=== PATIENT | female | born 1960 | race Caucasian/White ===

== ENCOUNTER 2018-06-03 02:04 | Observation (INO) | payer OTHER ==
[2018-06-03] MEDS ORDERED: NACL 0.9% 3 ML SYG IV (05:00)
[2018-06-03] MEDS ORDERED: ALBUTEROL/IPRATROPIUM (NEB) 3 ML AMP HHN (05:00)
[2018-06-03] MEDS ORDERED: NITROGLYCERIN (SL) 0.4 MG TAB SL (05:00)
[2018-06-03] MEDS ORDERED: ACETAMINOPHEN 325 MG TAB PO ×2 (05:00)
[2018-06-03] MEDS ORDERED: ONDANSETRON 4 MG INJ IV (05:00)
[2018-06-03] MEDS ORDERED: HYDROCODONE/APAP (5/325) TAB PO (05:00)
[2018-06-03] MEDS: PANTOPRAZOLE (EC) 40 MG TAB PO (06:04)
[2018-06-03 06:10] LABS: ADD MAN DIFF? NO
[2018-06-03 06:20] LABS: BASOPHILS % 0.6 % (0.0-2.0); EOSINOPHILS # 0.1 10^3/ul (0.0-0.5); EOSINOPHILS % 1.7 % (0.0-7.0); HEMATOCRIT 41.6 % (37.0-47.0); HEMOGLOBIN 13.3 g/dl (12.0-16.0); LYMPHOCYTES # 2.5 10^3/ul (0.8-2.9); LYMPHOCYTES % 35.7 % (15.0-51.0); MEAN CORPUSCULAR HEMOGLOBIN 26.2 pg (29.0-33.0); MEAN CORPUSCULAR VOLUME 81.9 fl (82.0-101.0); MEAN PLATELET VOLUME 10.6 fl (7.4-10.4); MONOCYTE # 0.5 10^3/ul (0.3-0.9); MONOCYTES % 7.3 % (0.0-11.0); NEUTROPHIL # 3.8 10^3/ul (1.6-7.5); NEUTROPHILS % 54.6 % (39.0-77.0); PLATELET COUNT 239 10^3/UL (140-415); RED BLOOD COUNT 5.08 10^6/ul (4.20-5.40); RED CELL DISTRIBUTION WIDTH 13.1 % (11.5-14.5)
[2018-06-03 07:28] LABS: CREATINE KINASE 66 IU/L (23-200)
[2018-06-03 07:36] LABS: ALANINE AMINOTRANSFERASE 27 IU/L (13-69); ALBUMIN 4.3 g/dl (3.3-4.9); ALBUMIN/GLOBULIN RATIO 1.53; ALKALINE PHOSPHATASE 86 IU/L (42-121); ANION GAP 11 (5-13); ASPARTATE AMINO TRANSFERASE 25 IU/L (15-46); BILIRUBIN,INDIRECT 0.6 mg/dl (0-1.1); BILIRUBIN,TOTAL 0.6 mg/dl (0.2-1.3); BLOOD UREA NITROGEN 15 mg/dl (7-20); CALCIUM 9.7 mg/dl (8.4-10.2); CARBON DIOXIDE 27 mmol/L (21-31); CHLORIDE 106 mmol/L (97-110); CHOL/HDL RATIO 3.4 RATIO; CHOLESTEROL 126 mg/dl (100-200); CREATININE 0.67 mg/dl (0.44-1.00); Estimated GFR > 60 mL/min (>60); GLUCOSE 96 mg/dl (70-220); HDL CHOLESTEROL 37 mg/dl (35-98); LDL CHOLESTEROL,CALCULATED 60 mg/dl; MAGNESIUM 2.1 mg/dl (1.7-2.5); SODIUM 144 mmol/L (135-144); TOTAL PROTEIN 7.1 g/dl (6.1-8.1); TRIGLYCERIDES 144 mg/dl (0-149)
[2018-06-03 07:41] LABS: CK INDEX 0.3; CK-MB < 0.22 ng/ml (0.0-2.4); TROPONIN-I < 0.012 ng/ml (0.000-0.120)
[2018-06-03 07:53] LABS: HEMOGLOBIN A1C 5.6 % (0-5.9)
[2018-06-03 08:02] LABS: THYROID STIMULATING HORMONE 0.474 MIU/L (0.465-4.680)
[2018-06-03] MEDS: ASPIRIN 81 MG TAB PO (08:12)
[2018-06-03] MEDS: FISH OIL 1,000 MG CAP PO (08:12)
[2018-06-03] MEDS: METOPROLOL 25 MG TAB PO ×2 (08:13→21:44)
[2018-06-03] MEDS: ENOXAPARIN 40 MG/0.4 ML SYG SC (08:29)
[2018-06-03 11:07] LABS: CREATINE KINASE 64 IU/L (23-200)
[2018-06-03 11:22] LABS: CK INDEX 0.3; CK-MB < 0.22 ng/ml (0.0-2.4); TROPONIN-I < 0.012 ng/ml (0.000-0.120)
[2018-06-03] MEDS: ENALAPRIL 5 MG TAB PO (12:23)
[2018-06-03] MEDS ORDERED: ATORVASTATIN 40 MG TAB PO (21:00)
[2018-06-03] MEDS: ATORVASTATIN 40 MG TAB PO (21:39)
[2018-06-04] MEDS: PANTOPRAZOLE (EC) 40 MG TAB PO (05:40)
[2018-06-04 06:08] LABS: ADD MAN DIFF? NO
[2018-06-04 06:18] LABS: BASOPHILS % 0.6 % (0.0-2.0); EOSINOPHILS # 0.2 10^3/ul (0.0-0.5); EOSINOPHILS % 2.2 % (0.0-7.0); HEMATOCRIT 42.4 % (37.0-47.0); HEMOGLOBIN 13.4 g/dl (12.0-16.0); LYMPHOCYTES # 2.2 10^3/ul (0.8-2.9); LYMPHOCYTES % 31.6 % (15.0-51.0); MEAN CORPUSCULAR HEMOGLOBIN 26.2 pg (29.0-33.0); MEAN CORPUSCULAR HGB CONC 31.6 g/dl (32.0-37.0); MEAN CORPUSCULAR VOLUME 82.8 fl (82.0-101.0); MEAN PLATELET VOLUME 10.7 fl (7.4-10.4); MONOCYTE # 0.6 10^3/ul (0.3-0.9); MONOCYTES % 8.4 % (0.0-11.0); NEUTROPHILS % 56.9 % (39.0-77.0); PLATELET COUNT 255 10^3/UL (140-415); RED BLOOD COUNT 5.12 10^6/ul (4.20-5.40)
[2018-06-04 06:18] LABS: WHITE BLOOD COUNT 6.9 10^3/ul (4.8-10.8)
[2018-06-04 06:45] LABS: ANION GAP 13 (5-13); BLOOD UREA NITROGEN 27 mg/dl (7-20); CALCIUM 9.7 mg/dl (8.4-10.2); CARBON DIOXIDE 28 mmol/L (21-31); CHLORIDE 103 mmol/L (97-110); CREATININE 0.93 mg/dl (0.44-1.00); Estimated GFR > 60 mL/min (>60); GLUCOSE 100 mg/dl (70-220); MAGNESIUM 2.1 mg/dl (1.7-2.5); PHOSPHORUS 5.2 mg/dl (2.5-4.9); POTASSIUM 3.8 mmol/L (3.5-5.1); SODIUM 144 mmol/L (135-144)
[2018-06-04] MEDS: ASPIRIN 81 MG TAB PO (08:17)
[2018-06-04] MEDS: FISH OIL 1,000 MG CAP PO (08:17)
[2018-06-04] MEDS: METOPROLOL 25 MG TAB PO ×2 (08:19→21:00)
[2018-06-04] MEDS: ENALAPRIL 5 MG TAB PO (08:19)
[2018-06-04] MEDS: ENOXAPARIN 40 MG/0.4 ML SYG SC (08:28)
[2018-06-04] MEDS: ATORVASTATIN 40 MG TAB PO (22:51)
[2018-06-05] MEDS: PANTOPRAZOLE (EC) 40 MG TAB PO (05:34)
[2018-06-05] MEDS: FISH OIL 1,000 MG CAP PO (08:45)
[2018-06-05] MEDS: ENALAPRIL 5 MG TAB PO (08:45)
[2018-06-05] MEDS: METOPROLOL 25 MG TAB PO (08:45)
[2018-06-05] MEDS: ASPIRIN 81 MG TAB PO (08:45)
[2018-06-05] MEDS: ENOXAPARIN 40 MG/0.4 ML SYG SC (09:28)
[2018-06-05] MEDS: REGADENOSON 0.4 MG/5 ML SYG (14:25)
== END 2018-06-05 19:30 | disposition home or self-care (01) ==
LOC: 6WM 02:04
DX: R07.89 Other chest pain (principal); Z86.73 Personal history of transient ischemic attack (TIA), and cerebral infarction without residual deficits; I11.0 Hypertensive heart disease with heart failure; I50.9 Heart failure, unspecified
CPT/HCPCS: 78452; 80048; 80053; 80061; 82550; 82553; 83036; 83735; 84100; 84443; 84484; 85025; 93005; 93017; 93306; 99217; G0378

== ENCOUNTER → 2018-08-05 | Outpatient (CLI) | payer OTHER ==
[~2018-08-05] MED LIST: METOPROLOL 5 MG INJ
[2018-08-05] MEDS: METOPROLOL 100 MG TAB ×2 (10:09→11:04)
[2018-08-05] MEDS: METOPROLOL (XL) 100 MG TAB PO (10:10)
[2018-08-05] MEDS: METOPROLOL (XL) 50 MG TAB PO (11:00)
[2018-08-05] MEDS: NITROGLYCERIN AEROSOL (4.9 GM) SL (12:02)
[2018-08-05] MEDS: NITROGLYCERIN AEROSOL (4.9 GM) (12:02)
[2018-08-05] MEDS: METOPROLOL 5 MG INJ IV (12:28)
[2018-08-05] MEDS: METOPROLOL 5 MG INJ (12:55)
[2018-08-05] MEDS: SOD CHLORIDE 0.9% 100 ML (13:00)
[2018-08-05] MEDS: IOHEXOL 100 ML (13:00)
== END | disposition home or self-care (01) ==
LOC: C/S 08:49
DX: R07.9 Chest pain, unspecified (principal)
CPT/HCPCS: 75571; 75571-59; 75574

== ENCOUNTER 2018-08-28 06:57 | Day surgery (SDC) | payer OTHER ==
[2018-08-28] MEDS ORDERED: PROPOFOL 20 ML (07:56)
[2018-08-28] MEDS ORDERED: PROPOFOL 200 MG INJ (07:56)
[2018-08-28 08:18] LABS: ADD MAN DIFF? NO
[2018-08-28 08:21] LABS: BASOPHIL # 0.1 10^3/ul (0.0-0.1); BASOPHILS % 0.8 % (0.0-2.0); EOSINOPHILS # 0.2 10^3/ul (0.0-0.5); EOSINOPHILS % 2.3 % (0.0-7.0); HEMATOCRIT 41.2 % (37.0-47.0); HEMOGLOBIN 13.4 g/dl (12.0-16.0); LYMPHOCYTES # 2.2 10^3/ul (0.8-2.9); LYMPHOCYTES % 34.4 % (15.0-51.0); MEAN CORPUSCULAR HEMOGLOBIN 26.3 pg (29.0-33.0); MEAN CORPUSCULAR HGB CONC 32.5 g/dl (32.0-37.0); MEAN CORPUSCULAR VOLUME 80.9 fl (82.0-101.0); MEAN PLATELET VOLUME 10.5 fl (7.4-10.4); MONOCYTE # 0.6 10^3/ul (0.3-0.9); MONOCYTES % 9.5 % (0.0-11.0); NEUTROPHIL # 3.5 10^3/ul (1.6-7.5); NEUTROPHILS % 52.8 % (39.0-77.0); PLATELET COUNT 231 10^3/UL (140-415); RED BLOOD COUNT 5.09 10^6/ul (4.20-5.40); RED CELL DISTRIBUTION WIDTH 13.2 % (11.5-14.5)
[2018-08-28 08:21] LABS: WHITE BLOOD COUNT 6.5 10^3/ul (4.8-10.8)
[2018-08-28 08:40] LABS: INR 0.89; PROTIME 12.2 Sec (11.9-14.9)
[2018-08-28 08:41] LABS: PARTIAL THROMBOPLASTIN TIME 30.1 Sec (23.0-35.0)
[2018-08-28 08:43] LABS: ANION GAP 10 (5-13); BLOOD UREA NITROGEN 13 mg/dl (7-20); CALCIUM 9.3 mg/dl (8.4-10.2); CARBON DIOXIDE 26 mmol/L (21-31); CHLORIDE 108 mmol/L (97-110); CREATININE 0.66 mg/dl (0.44-1.00); Estimated GFR > 60 mL/min (>60); GLUCOSE 98 mg/dl (70-220); POTASSIUM 3.7 mmol/L (3.5-5.1); SODIUM 144 mmol/L (135-144)
== END 2018-08-28 10:48 | disposition home or self-care (01) ==
LOC: SDS 06:57
DX: Q21.1 Atrial septal defect (principal); R07.89 Other chest pain; Z86.73 Personal history of transient ischemic attack (TIA), and cerebral infarction without residual deficits; Z79.82 Long term (current) use of aspirin
CPT/HCPCS: 71045; 80048; 85025; 85610; 85730; 93005; 93312; 93320; 93325